=== PATIENT | female | born 1985 | race Caucasian/White ===

== ENCOUNTER 2016-09-18 06:11 | Emergency (ER) | payer OTHER ==
[~2016-09-18] VITALS: Ht 162.6 cm; Wt 55.0 kg
[~2016-09-18 06:11] MED LIST: ASPI-664 PO; FIORICET PO; ONDA4TAB14 PO; SUMA50TA11 PO
[2016-09-18 06:31] VITALS: Ht 162.6 cm; Wt 55.0 kg
[2016-09-18] MEDS ORDERED: DOCO2CRE3 TOP (06:46)
[2016-09-18] MEDS ORDERED: ACYC800T57 PO (06:46)
--- NOTE | 2016-09-18 08:25 | ERD ---
DATE OF SERVICE: HISTORY OF PRESENT ILLNESS: The patient is a 31-year-old female coming in complaining of a cold sor e on her right upper lip x1 day. The patient has had these in the past. She states she has had no medicine to take for the pain. She feels like her previous cold sores in the past. She has had no fevers. She has had no sore throat. No troubles eating, no vomiting. PAST MEDICAL HISTORY: No other medical problems. PAST SURGICAL HISTORY: Ectopic removal. SOCIAL HISTORY: Denies. ALLERGIES TO MEDICATIONS: METHOTREXATE. REVIEW OF SYSTEMS: A 12-point review of systems was done. Refer to HPI for positives, all other sy stems negative. PHYSICAL EXAMINATION: VITAL SIGNS: Temperature 98, pulse 84, blood pressure 121/78, respiratory rate 18, O2 saturation 99 % on room air. Pain intensity is 0/10. GENERAL: The patient is well-appearing, well-nourished, no acute distress. HEART: Regular rate and rhythm. No murmurs, clicks, rubs or gallops. No S3 or S4. CHEST: Clear to auscultation bilaterally. There are no rales, wheezes or rhonchi. HEENT: Atraumatic. Conjunctivae are pink. Pupils equal, round, and reactive to light. There is no s cleral icterus. Tympanic membranes clear bilaterally. Oropharynx clear. No nystagmus or photophobia . SKIN: There is a small vesicular collection noted on the right upper lip. No surrounding erythema. No purulence. NECK: C-spine is soft and supple. There is no meningismus. There is no cervical lymphadenopathy. No JVD. No bruits. No goiter. DIAGNOSIS: Herpes simplex virus 1. MEDICAL DECISION MAKING: I have low suspicion for bacterial infection. Low suspicion for life-thre atening rash. The patient's exam is concerning for a vesicular rash. She will be treated appropria tely. The patient is given strict ER precautions. DISCHARGE DISPOSITION: The patient is discharged stable. The patient is given a prescription for A breva and acyclovir. Told to follow up with primary care within 1 to 2 days for reevaluation. The patient was told if symptoms progress or worsen to return to the ER. All other questions answered a t time of discharge. Discharge summary given at the time of departure. Patient understood and comp lied with plan. Dictated By: SIMON TALBERT PA for TIN G[employer]EL[employer]/RENÉ Conf#: [id number] DID#: [id number]
== END 2016-09-18 07:06 | disposition home or self-care (01) ==
LOC: FTE 06:11
DX: B00.1 Herpesviral vesicular dermatitis (principal)
CPT/HCPCS: 99283

== ENCOUNTER 2016-11-05 10:50 | Emergency (ER) | payer OTHER ==
[~2016-11-05] VITALS: Wt 52.7 kg
[~2016-11-05 10:50] MED LIST changes: +ACYC800T57 PO; +DOCO2CRE3 TOP
--- NOTE | 2016-11-05 12:00 | ERD ---
ER Documentation Chief Complaint Date/Time DATE: 11/05/16 TIME: 11:58 Chief Complaint chest pain for the past 4 days. no trauma. no diaphoresis . HPI 31-year-old female comes in with mid sternal chest pain for the past 4 days that is intermittent lasting for approximately a minute. She states that she has lost over 30 pounds in the last 2 months, and she anorexia as well as binging and purging. She states that the pain is in the center, nonradiating, no shortness of breath associated with this. She states that at times she feels like she is having palpitations, denies any syncope. No recent leg pain, leg swelling, denies recent surgeries, does not take exogenous steroids, she is PERC negative. ROS All systems reviewed and are negative except as per history of present illness. Medications Home Meds Active Scripts Acyclovir* (Zovirax*) 800 Mg Tablet, 800 MG PO 5 TIMES DAILY for 7 Days, TAB Prov:JADA TALBERT PA-C 09/18/16 Docosanol (Abreva) 2 Gm Cream.gm., 1 APPLIC TOP 5 TIMES DAILY, #1 TUB Prov:JADA TALBERT PA-C 09/18/16 Ondansetron (Ondansetron Odt) 4 Mg Tab.rapdis, 4 MG PO Q8 Y for NAUSEA AND/OR VOMITING, #30 TAB Prov:AN ROTH NP 07/03/16 Acetamin/Butalbital/Caffeine* (Fioricet*) [id number] Tab, 1 TAB PO Q6H Y for PAIN, #30 TAB Prov:AN ROTH NP 07/03/16 Sumatriptan Succinate* (Imitrex*) 50 Mg Tablet, 50 MG PO BID Y for HEADACHE, # 40 TAB 1 Refill May repeat after 2 hours if needed; MAX 200 mg/24 hours Prov:EROS SOARES MD 08/23/15 Aspirin* (Aspirin* EC) 81 Mg Tablet.dr, 81 MG PO DAILY for 30 Days, TAB 2 Refills Prov:EROS SOARES MD 08/23/15 Allergies Allergies: Coded Allergies: methotrexate (Verified Allergy, Unknown, 09/18/16) PMhx/Soc History of Surgery: Yes (left fallopian tube last april, D&C, ectopic) Anesthesia Reaction: No Hx Neurological Disorder: Yes (tia (2016), MIGRAINES) Hx Respiratory Disorders: No Hx Cardiac Disorders: No Hx Psychiatric Problems: No Hx Miscellaneous Medical Probl: No Hx Alcohol Use: No Hx Substance Use: Yes (MARIJUANA) Hx Tobacco Use: Yes Smoking Status: Unknown if ever smoked Physical Exam Vitals Vital Signs Date Time Temp Pulse Resp B/P Pulse Ox O2 Delivery O2 Flow Rate FiO2 11/05/16 10:58 98.8 98 20 140/91 98 Physical Exam General: Well-developed, well-nourished. The patient appears in no acute distress. HEENT: Head is normocephalic, atraumatic. No scleral icterus. Pupils are equal , round, and reactive. Oral mucous membranes are moist. No pharyngeal erythema. Neck: Supple. Nontender. Lungs: Clear to auscultation. Normal air movement. Chest: Reproducible chest wall pain with inspiration and expiration, as well as chest wall movement by the patient. Heart: Regular rate and rhythm. S1 and S2 are normal. No murmurs, gallops, or rubs. Abdomen: Soft, nontender, nondistended. Bowel sounds are normoactive. Extremities: No clubbing or cyanosis. Normal pulses. Moving extremities x 4. No weakness. Neurologic: Alert and oriented 3. No focal deficits. Cranial nerves II to XII grossly intact Skin: Normal turgor. No rash or lesions. Result Diagram: 11/05/16 1200 11/05/16 1200 Results 24 hrs Laboratory Tests Test 11/05/16 12:00 Anion Gap 19 Basophils # 0.010^3/ul Basophils % 0.4% Blood Morphology Comment Blood Urea Nitrogen 9mg/dl Calcium Level 9.8mg/dl Carbon Dioxide Level 31mmol/L Chloride Level 100mmol/L Creatinine 0.74mg/dl Eosinophils # 0.110^3/ul Eosinophils % 0.9% Glucose Level 97mg/dl Hematocrit 42.6% Hemoglobin 14.2g/dl Lymphocytes # 2.310^3/ul Lymphocytes % 29.6% Mean Corpuscular Hemoglobin 28.2pg Mean Corpuscular Hemoglobin Concent 33.4g/dl Mean Corpuscular Volume 84.3fl Mean Platelet Volume 9.8fl Monocytes # 0.410^3/ul Monocytes % 5.7% Neutrophils # 4.810^3/ul Neutrophils % 63.4% Nucleated Red Blood Cells # 0.010^3/ul Nucleated Red Blood Cells % 0.0/100WBC Platelet Count 72783^3/UL Potassium Level 4.7mmol/L Red Blood Count 5.0510^6/ul Red Cell Distribution Width 15.4% Sodium Level 145mmol/L White Blood Count 7.610^3/ul Current Medications Medications (Trade) Dose Ordered Sig/Jase Route PRN Reason Start Time Stop Time Status Last Admin Dose Admin Ibuprofen (Motrin) 600 mg ONCE ONCE PO 11/05/16 12:30 11/05/16 12:31 DC 11/05/16 12:35 Chest X-ray 1V Interpreted by me as well as the radiologist: Soft Tissue: No acute abnormalities Bones: No acute abnormalities Mediastinum/Cardiac Silhouette/Lungs: No acute abnormalities Procedures/MDM 12-lead EKG(interpreted by supervising physician): Reviewed by Dr. Mcclain Rate/Rhythm: Sinus tachycardia with a rate of 116 QRS, ST, T-waves: No changes consistent w/ acute ischemia, no intervals, no dysrhythmias, no ectopy Impression: No evidence of ischemia or arrhythmia Medical decision makin-year-old female otherwise healthy comes into the emergency department with intermittent chest pain for approximately 4 days now. Patient's pain is described to be midsternal, nonradiating without associated shortness of breath. She is PERC score negative, no signs of pulmonary embolus , acute coronary syndrome, dissection, pneumonia. Patient had a workup in the emergency department, EKG shows normal sinus rhythm, electrolytes are all normal. She does admit to a recent anorexia as well as binging and purging, all electrolytes were normal today. She does see a primary care physician, She reports some other symptoms including numbness to her fingertips, I believe the patient's symptoms may be related to possibly some stress and anxiety symptoms as well. Do not see any emergent signs of an chest pain, no signs of angina patient is appropriate for outpatient management. She eloped from the ER , without AVS. Departure Diagnosis: Primary Impression: Chest pain Condition: GAVIOTA Staton PA-C Nov 05, 2016 12:00
--- NOTE | 2016-11-05 12:24 | RADRPT ---
PROCEDURE: Chest Radiograph. CLINICAL INDICATION: Chest pain TECHNIQUE: Single frontal chest radiograph. COMPARISON: Chest radiograph 07/04/2013 FINDINGS: The cardiomediastinal silhouette is within normal limits. No infiltrate or effusion is seen. Th e bones are intact. IMPRESSION: 1. Unremarkable chest radiograph. RPTAT: KK .Elder Hamm MD, MD Date Time Electronically viewed and signed by .Elder Hamm MD, on 11/05/2016 12:24 .B/
[2016-11-05] MEDS ORDERED: IBUPROFEN 600 MG TAB PO ONE (12:30)
[2016-11-05 12:44] LABS: BASOPHILS % 0.4 % (0.0-2.0); EOSINOPHILS # 0.1 10^3/ul (0.0-0.5); EOSINOPHILS % 0.9 % (0.0-7.0); HEMATOCRIT 42.6 % (37.0-47.0); HEMOGLOBIN 14.2 g/dl (12.0-16.0); LYMPHOCYTES # 2.3 10^3/ul (0.8-2.9); LYMPHOCYTES % 29.6 % (15.0-51.0); MEAN CORPUSCULAR HEMOGLOBIN 28.2 pg (29.0-33.0); MEAN CORPUSCULAR HGB CONC 33.4 g/dl (32.0-37.0); MEAN CORPUSCULAR VOLUME 84.3 fl (82.0-101.0); MEAN PLATELET VOLUME 9.8 fl (7.4-10.4); MONOCYTE # 0.4 10^3/ul (0.3-0.9); MONOCYTES % 5.7 % (0.0-11.0); NEUTROPHIL # 4.8 10^3/ul (1.6-7.5); NEUTROPHILS % 63.4 % (39.0-77.0); PLATELET COUNT 325 10^3/UL (140-440); RED BLOOD COUNT 5.05 10^6/ul (4.20-5.40); RED CELL DISTRIBUTION WIDTH 15.4 % (11.5-14.5); UNCORRECTED WBC 7.6 10^3/ul (4.8-10.8); WHITE BLOOD COUNT 7.6 10^3/ul (4.8-10.8)
[2016-11-05 12:55] LABS: CONDITION 1; LH ANALYZER COMMENTS 1
[2016-11-05 13:02] LABS: POTASSIUM 4.7 mmol/L (3.5-5.1)
[2016-11-05 13:04] LABS: CREATININE 0.74 mg/dl (0.44-1.00)
[2016-11-05 13:05] LABS: CALCIUM 9.8 mg/dl (8.4-10.2)
== END 2016-11-05 17:21 | disposition left against medical advice (07) ==
LOC: FTE 10:50
DX: R07.9 Chest pain, unspecified (principal); Z79.82 Long term (current) use of aspirin; Z87.891 Personal history of nicotine dependence
CPT/HCPCS: 36415; 71010; 80048; 85025; 93005; Z7502; Z7610

== ENCOUNTER 2017-04-01 10:59 | Emergency (ER) | payer OTHER ==
[~2017-04-01] VITALS: Ht 162.6 cm; Wt 56.0 kg
[2017-04-01 11:05] VITALS: Ht 162.6 cm; Wt 56.0 kg
[2017-04-01] MEDS ORDERED: LEVETIRACETAM 500 MG TAB PO ONE (14:30)
--- NOTE | 2017-04-01 15:05 | RADRPT ---
PROCEDURE: CT Brain without contrast. CLINICAL INDICATION: Headache. Seizure. TECHNIQUE: A CT of the brain without contrast was performed utilizing axial sections from the skul l base through the vertex. The patient was scanned without intravenous contrast enhancement. Sagitta l and coronal reformatted images were obtained using the data from the axial images. Total exam DLP is 720.23 mGy-cm. CTDIvol is 45.01 mGy. One or more of the following dose reduction techniques we re used: Automated exposure control, adjustment of the mA and/or kV according to patient size, use o f iterative reconstruction technique. COMPARISON: 07/03/2016. FINDINGS: There is encephalomalacia identified within the left frontal parasagittal region consistent with a p rior left anterior cerebral artery distribution infarct. There is encephalomalacia within the region of the left anterior commissure consistent with a prior infarct. There is no evidence of recent inf arct. The ventricles have a normal shape and position. There is no evidence for mass effect or midl ine shift. There is no evidence for acute intra or extra-axial blood. The bony calvarium is intact. The visualized portions of the paranasal sinuses are normal. The mastoid air cells are unremarkable. IMPRESSION: 1. The intracranial contents are without significant interval change compared to the patient's prior CT scan from 07/03/2016. 2. 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 3. Old infarct within the left anterior commissure region. 4. Otherwise unremarkable noncontrast CT scan of the brain. RPTAT: QQ .Severiano Prabhakar MD, MD Date Time Electronically viewed and signed by .Severiano Prabhakar MD, on 04/01/2017 15:04 .R/
[2017-04-01 15:49] LABS: URINE BLOOD (Dip) POC Negative (NEGATIVE)
[2017-04-01] MEDS ORDERED: LEVE-5 PO (16:02)
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
[2017-04-01 17:01] VITALS: BP 116/62; PULSE 76; RESP 18
== END 2017-04-01 17:03 | disposition home or self-care (01) ==
LOC: FTE 10:59
DX: R56.9 Unspecified convulsions (principal); R53.83 Other fatigue; Z79.82 Long term (current) use of aspirin; Z87.891 Personal history of nicotine dependence
CPT/HCPCS: 70450; 81003; 93005; Z7502; Z7610

== ENCOUNTER 2017-04-15 14:12 | Emergency (ER) | payer OTHER ==
[~2017-04-15] VITALS: Ht 167.6 cm; Wt 55.5 kg
[~2017-04-15 14:12] MED LIST changes: +LEVE-5 PO
[2017-04-15 14:18] VITALS: Ht 167.6 cm; Wt 55.5 kg
--- NOTE | 2017-04-15 14:50 | ERA ---
ER Documentation Chief Complaint Date/Time DATE: 04/15/17 TIME: 14:46 Chief Complaint feeling tired and dizzy after taking kepra HPI 31-year-old female with a significant past medical history presenting with a chief complaint of adverse reactions from her new seizure medication, Keppra 500 mg p.o. twice daily. Patient states that she feels anxious and tingly after taking the medication. Denies change in behavior, shortness of breath, chest pain, dyspnea, dysphagia, dizziness, syncope or seizures. Patient has no other complaints at this time and describes no other associated manifestations. Past documents and nursing notes have been reviewed. No recent travel and vaccination status is up-to-date. ROS All systems reviewed and are negative except as per history of present illness. Medications Home Meds Active Scripts Levetiracetam* (Keppra*) 500 Mg Tablet, 500 MG PO BID, #60 TAB Prov:EVAN NGO MD 04/01/17 Acyclovir* (Zovirax*) 800 Mg Tablet, 800 MG PO 5 TIMES DAILY for 7 Days, TAB Prov:JADA TALBERT PA-C 09/18/16 Docosanol (Abreva) 2 Gm Cream.gm., 1 APPLIC TOP 5 TIMES DAILY, #1 TUB Prov:JADA TALBERT PA-C 09/18/16 Ondansetron (Ondansetron Odt) 4 Mg Tab.rapdis, 4 MG PO Q8 Y for NAUSEA AND/OR VOMITING, #30 TAB Prov:AN ROTH NP 07/03/16 Acetamin/Butalbital/Caffeine* (Fioricet*) [id number] Tab, 1 TAB PO Q6H Y for PAIN, #30 TAB Prov:AN ROTH NP 07/03/16 Sumatriptan Succinate* (Imitrex*) 50 Mg Tablet, 50 MG PO BID Y for HEADACHE, # 40 TAB 1 Refill May repeat after 2 hours if needed; MAX 200 mg/24 hours Prov:EROS SOARES MD 08/23/15 Aspirin* (Aspirin* EC) 81 Mg Tablet.dr, 81 MG PO DAILY for 30 Days, TAB 2 Refills Prov:EROS SOARES MD 12/10/15 Allergies Allergies: Coded Allergies: methotrexate (Verified Allergy, Unknown, 09/18/16) PMhx/Soc History of Surgery: Yes (left fallopian tube last april, D&C, ectopic) Anesthesia Reaction: No Hx Neurological Disorder: Yes (tia (2016), MIGRAINES) Hx Respiratory Disorders: No Hx Cardiac Disorders: No Hx Psychiatric Problems: No Hx Miscellaneous Medical Probl: No Hx Alcohol Use: No Hx Substance Use: Yes (MARIJUANA) Hx Tobacco Use: Yes Smoking Status: Never smoker Physical Exam Vitals Vital Signs Date Time Temp Pulse Resp B/P Pulse Ox O2 Delivery O2 Flow Rate FiO2 04/15/17 14:18 99.2 72 18 145/82 99 Physical Exam Const: Well-appearing well-developed 31-year-old female no acute distress Head: Atraumatic Eyes: Normal Conjunctiva ENT: Normal External Ears, Nose and Mouth. Neck: Full range of motion..~ No meningismus. Resp: Clear to auscultation bilaterally Cardio: Regular rate and rhythm, no murmurs Abd: Soft, non tender, non distended. Normal bowel sounds Skin: No petechiae or rashes Back: No midline or flank tenderness Ext: No cyanosis, or edema Neur: Awake and alert Psych: Normal Mood and Affect Procedures/MDM 31-year-old female complaining of adverse reactions from Keppra 500 mg p.o. twice daily as described in history and physical examination. I have spoken with my attending Dr. Oleary who has suggested that the patient follow-up with neurology as soon as possible for medication adjustment. I have little suspicion for current intracranial pathologies. I have spoken with the patient for more than 15 minutes adequately describing the risks and benefits of taking the medication. The patient has verbally acknowledged that she understands her current status and agrees to the plan of management. Vitals are stable and current condition is appropriate for discharge. Patient will be discharged with discharge instructions and return precautions. Departure Diagnosis: Primary Impression: Medication adverse effect Qualified Code: T88.7XXA - Medication adverse effect, initial encounter Additional Impression: History of seizure Condition: Stable Patient Instructions: Seizure, Recurrent [Adult] Additional Instructions: Follow-up with neurologist or PCP. ABUNDIO BURR PA-C Apr 15, 2017 14:50
== END 2017-04-15 14:50 | disposition home or self-care (01) ==
LOC: FTE 14:12
DX: R42 Dizziness and giddiness (principal); T42.6X5A Adverse effect of other antiepileptic and sedative-hypnotic drugs, initial encounter; Z79.82 Long term (current) use of aspirin; Z86.69 Personal history of other diseases of the nervous system and sense organs; Z87.891 Personal history of nicotine dependence
CPT/HCPCS: 99282

== ENCOUNTER 2018-03-10 17:53 | Emergency (ER) | END 2018-03-10 20:29 | disposition home or self-care (01) ==

== ENCOUNTER 2018-05-27 04:02 | Emergency (ER) | END 2018-05-27 08:28 | disposition home or self-care (01) ==

== ENCOUNTER 2018-05-29 13:54 | Emergency (ER) | END 2018-05-29 16:10 | disposition home or self-care (01) ==

== ENCOUNTER 2018-05-31 15:31 | Emergency (ER) | END 2018-05-31 20:56 | disposition home or self-care (01) ==

== ENCOUNTER 2018-07-09 14:25 | Emergency (ER) | END 2018-07-09 15:45 | disposition home or self-care (01) ==

== ENCOUNTER 2019-04-30 15:54 | Emergency (ER) | payer OTHER ==
[~2019-04-30] VITALS: Ht 165.1 cm; Wt 59.7 kg
[~2019-04-30 15:54] MED LIST changes: +ACET325T33 PO; -ACYC800T57 PO; -ASPI-664 PO; +CIPR500T4 PO; -DOCO2CRE3 TOP; +ERYT1OIN6 RIGHT EYE; -FIORICET PO; +HYDR-4011 PO; +IBUP-1542 PO; +IBUP-1544 PO; -LEVE-5 PO; +NAPR-688 PO; -SUMA50TA11 PO
[2019-04-30 15:59] VITALS: BP 134/90; PULSE 72; RESP 18; Ht 165.1 cm; Wt 59.7 kg
--- NOTE | 2019-04-30 17:09 | ERD ---
ER Documentation Chief Complaint Chief Complaint right eye pain x 4 days HPI 33-year-old female, presents the emergency department, complaining of painful lump in the right upper eyelid that started approximately 3 days ago. The patient denies blurred vision, no headache, no fever or chills. She does not wear contact lenses. ROS All systems reviewed and are negative except as per history of present illness. Medications Home Meds Active Scripts Erythromycin Base (Erythromycin) 1 Gm Oint...g., 1 APPLIC RIGHT EYE QID for 7 Days Prov:OG MUÑIZ MD 04/30/19 Ondansetron (Ondansetron Odt) 4 Mg Tab.rapdis, 4 MG PO Q6H PRN for NAUSEA AND/OR VOMITING, #10 TAB Prov:JADA TALBERT PA-C 07/09/18 Ibuprofen* (Motrin*) 600 Mg Tab, 600 MG PO Q6, #30 TAB Prov:JADA TALBERT PA-C 07/09/18 Acetaminophen* (Tylenol*) 325 Mg Tablet, 2 TAB PO Q6 PRN for PAIN AND OR ELEVATED TEMP, #20 TAB Prov:JADA TALBERT PA-C 07/09/18 Ciprofloxacin Hcl* (Ciprofloxacin Hcl*) 500 Mg Tablet, 500 MG PO BID for 10 Days, TAB Prov:JADA TALBERT PA-C 07/09/18 Hydrocodone/Acetaminophen ([place] 5-325 Tablet) 1 Each Tablet, 1 TAB PO Q6H PRN for PAIN, #15 TAB Prov:ABUNDIO RUBY DO 05/29/18 Ibuprofen* (Ibuprofen*) 800 Mg Tablet, 800 MG PO Q8 PRN for PAIN, #30 TAB Prov:ABUNDIO RUBY DO 05/29/18 Ondansetron (Ondansetron Odt) 4 Mg Tab.rapdis, 4 MG PO Q6H PRN for NAUSEA AND/OR VOMITING, #10 TAB Prov:MANNY SANCHEZ DO 05/27/18 Naproxen* (Naproxen*) 500 Mg Tablet, 500 MG PO BID PRN for PAIN, #20 TAB Prov:MANNY SANCHEZ DO 05/27/18 Allergies Allergies: Coded Allergies: methotrexate (Unverified Allergy, Unknown, 05/27/18) PMhx/Soc History of Surgery: Yes (left fallopian tube last april, D&C, ectopic) Anesthesia Reaction: No Hx Neurological Disorder: Yes (tia (2016), MIGRAINES) Hx Respiratory Disorders: No Hx Cardiac Disorders: No Hx Psychiatric Problems: No Hx Miscellaneous Medical Probl: No Hx Alcohol Use: No Hx Substance Use: Yes (MARIJUANA) Hx Tobacco Use: Yes Smoking Status: Never smoker FmHx Family History: No diabetes, No coronary disease Physical Exam Vitals Vital Signs Date Temp Pulse Resp B/P (MAP) Pulse Ox O2 O2 Flow FiO2 Time Delivery Rate 04/30/19 98.5 72 18 134/90 98 15:59 (105) Physical Exam Patient alert, oriented, vital signs stable. HEAD: Normocephalic, atraumatic. EYES: PERRLA, EOMI, Sclera and conjunctiva appear normal, 0.5 cm well-defined, erythematous nodule on the corner of the right upper eyelid. NOSE: Clear and patent nostrils. EARS: Canals clear, tympanic membranes WNL. MOUTH: normal lips and tongue, no oral lesions. THROAT: Normal oropharynx, no tonsillar exudates. NECK: Supple, No lymphadenopathy. Full ROM without pain or tenderness. HEART: RRR, no rubs, murmurs, clicks or gallops. LUNGS: Clear to auscultation. ABDOMEN: Soft, non-tender without masses or hepatosplenomegaly. EXTREMITIES: No edema bilaterally. BACK: Full ROM, no deformity, normal back exam NEURO: Cranial nerves grossly intact, no motor or sensory deficit SKIN: No rashes, no petechia. Procedures/MDM Differential diagnosis include but not limited to: infection bacterial/viral/fungal, iritis, scleritis, corneal abrasion, allergies, foreign body, glaucoma. Physical examination and clinical presentation consistent most likely with hordeolum externum of the right upper eyelid. During the ED course the patient remained stable, no new complaints. Clinical impression discussed with patient who agrees with management. The patient is stable to be treated outpatient and will be discharged home; Some side effects of prescribed medications (headache, rash, nausea, vomiting, diarrhea, interactions with other medications) were reviewed. The patient was instructed to follow up with the primary care provider in the next 48h. If symptoms persist, worsen or new symptoms develop, then patient should return to the ED immediately. Disclaimer: Inadvertent spelling and grammatical errors are likely due to EHR/dictation software use and do not reflect on the overall quality of patient care. Also, please note that the electronic time recorded on this note does not necessarily reflect the actual time of the patient encounter. Departure Diagnosis: Primary Impression: Hordeolum externum of right upper eyelid Condition: Stable Additional Instructions: Thank you very much for allowing us to participate in your care. Your health and safety is our top priority at [facility]. The evaluation in the emergency department has been done to rule out an acute emergency. Chronic, [id number] conditions may have not been evaluated; therefore, you need to follow up with a primary care provider in the next 48h. If symptoms persist, worsen or new symptoms develop, then patient should return to the ED immediately. Call your primary care doctor TOMORROW for an appointment during the next 2-4 days and bring all the information provided. Have prescriptions filled and follow precisely the directions on the label. If the symptoms get worse and your provider is unavailable, return to the Emergency Department immediately. OG MUÑIZ MD Apr 30, 2019 17:09
== END 2019-04-30 17:35 | disposition home or self-care (01) ==
LOC: FTE 15:54
DX: H00.011 Hordeolum externum right upper eyelid (principal)
CPT/HCPCS: 99283